=== PATIENT | male | born 1980 | race Caucasian/White ===

== ENCOUNTER 2020-03-16 09:20 | Outpatient (CLI) | payer OTHER, SELFPAY ==
--- NOTE | ~2020-03-16 | XR_ITS ---
EXAMINATION: XR knee RT min 4V DATE: 03/16/2020 09:39 INDICATION: Nontraumatic right knee pain TECHNIQUE: Weight bearing anteroposterior and Ramos, sunrise, and lateral views of the right knee were obtained COMPARISON: None. FINDINGS: Alignment is normal. Mild tricompartmental osteoarthritis at the right knee with small marginal osteo phyte with relatively preserved joint spaces in the medial and lateral compartments and with moderate -sized marginal osteophytes and mild lateral sided joint space. The patellofemoral compartment. Comme nt and these a fight at the tibial insertion of the patellar tendon. No joint effusion/layering lipoh emarthrosis. Soft tissues are unremarkable. IMPRESSION: 1. 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 Reviewed, dictated and finalized at location A.
== END 2020-03-16 09:21 | disposition home or self-care (01) ==
PROVIDERS: PCP Nurse Practitioner Family; Visit Provider Nurse Practitioner Family
DX: M17.11 Unilateral primary osteoarthritis, right knee (principal)
CPT/HCPCS: 73564

== ENCOUNTER 2022-04-16 17:31 | Emergency (ER) | payer OTHER, SELFPAY ==
[2022-04-16 17:39] VITALS: PULSE 77; RESP 16; TEMP 36.6; O2SAT 98
--- NOTE | 2022-04-16 18:28 | PC.NURSE ---
patient left without being seen. stating he will return if needed
== END 2022-04-16 19:38 | disposition left against medical advice (07) ==
PROVIDERS: PCP Nurse Practitioner Family
DX: S19.9XXA Unspecified injury of neck, initial encounter (principal)
CPT/HCPCS: 99199